=== PATIENT | male | born 1965 | race Caucasian/White ===

== ENCOUNTER 2018-01-26 14:16 | Inpatient (IN) | payer SELFPAY ==
[2018-01-26 14:26] LABS: ADD MAN DIFF? NO
[2018-01-26 14:28] LABS: WHITE BLOOD COUNT 6.4 10^3/ul (4.8-10.8)
[2018-01-26 14:28] LABS: BASOPHIL # 0.1 10^3/ul (0.0-0.1); BASOPHILS % 0.8 % (0.0-2.0); EOSINOPHILS # 0.2 10^3/ul (0.0-0.5); HEMATOCRIT 39.8 % (42.0-52.0); HEMOGLOBIN 14.2 g/dl (14.0-18.0); LYMPHOCYTES # 1.3 10^3/ul (0.8-2.9); MEAN CORPUSCULAR HEMOGLOBIN 30.9 pg (29.0-33.0); MEAN CORPUSCULAR HGB CONC 35.7 g/dl (32.0-37.0); MEAN CORPUSCULAR VOLUME 86.7 fl (82.0-101.0); MEAN PLATELET VOLUME 9.4 fl (7.4-10.4); MONOCYTE # 0.6 10^3/ul (0.3-0.9); MONOCYTES % 9.7 % (0.0-11.0); NEUTROPHIL # 4.2 10^3/ul (1.6-7.5); NEUTROPHILS % 65.3 % (39.0-77.0); PLATELET COUNT 308 10^3/UL (140-415); RED BLOOD COUNT 4.59 10^6/ul (4.70-6.10); RED CELL DISTRIBUTION WIDTH 12.8 % (11.5-14.5)
[2018-01-26 14:39] LABS: ANION GAP 16 (8-16); BLOOD UREA NITROGEN 16 mg/dl (7-20); CALCIUM 8.9 mg/dl (8.4-10.2); CARBON DIOXIDE 27 mmol/L (21-31); CHLORIDE 103 mmol/L (97-110); CREATININE 0.93 mg/dl (0.61-1.24); GLUCOSE 101 mg/dl (70-220); POTASSIUM 3.2 mmol/L (3.5-5.1); SODIUM 143 mmol/L (135-144)
[2018-01-26 14:52] LABS: TROPONIN-I < 0.012 ng/ml (0.00-0.12)
[2018-01-26] MEDS: SOD CHLORIDE 0.9% 1,000 ML IV ×2 (14:56→17:28)
[2018-01-26] MEDS: POTASSIUM CHLORIDE (SR) 20 MEQ TAB PO ×2 (15:37→17:28)
[2018-01-26] MEDS ORDERED: ONDANSETRON 4 MG INJ IV ×2 (16:00→17:00)
[2018-01-26] MEDS ORDERED: ACETAMINOPHEN 325 MG TAB PO ×2 (16:00→17:00)
[2018-01-26] MEDS ORDERED: morphine 2 MG INJ IV (17:00)
[2018-01-26] MEDS ORDERED: ZOLPIDEM 5 MG TAB PO (17:00)
[2018-01-26] MEDS ORDERED: LORAZEPAM 0.5 MG TAB PO (17:00)
[2018-01-26] MEDS ORDERED: NITROGLYCERIN (SL) 0.4 MG TAB SL (17:00)
[2018-01-26] MEDS: DOCUSATE SODIUM 100 MG CAP PO (17:28)
[2018-01-26] MEDS: ENOXAPARIN 100 MG/ML SYG SC (18:30)
[2018-01-26] MEDS: HYDROCODONE/APAP (5/325) TAB PO (18:40)
[2018-01-26 21:39] LABS: ALANINE AMINOTRANSFERASE 22 IU/L (13-69); ALBUMIN 3.8 g/dl (3.3-4.9); ALKALINE PHOSPHATASE 63 IU/L (42-121); ASPARTATE AMINO TRANSFERASE 27 IU/L (15-46); BILIRUBIN,INDIRECT 0.4 mg/dl (0-1.1); BILIRUBIN,TOTAL 0.4 mg/dl (0.2-1.3); TOTAL PROTEIN 6.5 g/dl (6.1-8.1)
[2018-01-26 21:40] LABS: CREATINE KINASE 115 IU/L (23-200)
[2018-01-26 21:41] LABS: PHOSPHORUS 3.9 mg/dl (2.5-4.9)
[2018-01-26] MEDS: FAMOTIDINE 20 MG TAB PO (21:48)
[2018-01-26 21:52] LABS: CK INDEX 1.2; CK-MB 1.42 ng/ml (0.0-2.4); TROPONIN-I < 0.012 ng/ml (0.00-0.12)
[2018-01-27 02:49] LABS: CREATINE KINASE 104 IU/L (23-200)
[2018-01-27 03:02] LABS: CK INDEX 1.2
[2018-01-27 03:04] LABS: CK-MB 1.29 ng/ml (0.0-2.4); TROPONIN-I < 0.012 ng/ml (0.00-0.12)
[2018-01-27 04:13] LABS: ADD UMIC NO; UR ASCORBIC ACID NEGATIVE (NEGATIVE); UR BILIRUBIN (Dip) NEGATIVE (NEGATIVE); UR BLOOD (Dip) NEGATIVE (NEGATIVE); UR CLARITY SLIGHTLY CLOUDY (CLEAR); UR COLOR YELLOW (YELLOW); UR GLUCOSE (Dip) NEGATIVE (NEGATIVE); UR KETONES (Dip) NEGATIVE (NEGATIVE); UR LEUKOCYTE ESTERASE (Dip) NEGATIVE Leu/ul (NEGATIVE); UR MUCUS MANY /HPF (NONE SEEN); UR NITRITE (Dip) NEGATIVE (NEGATIVE); UR RBC 3 /HPF (0-5); UR SPECIFIC GRAVITY (Dip) 1.021 (1.003-1.030); UR TOTAL PROTEIN (Dip) NEGATIVE (NEGATIVE); UR UROBILINOGEN (Dip) 1+ mg/dL (NEGATIVE); UR WBC 6 /HPF (0-5)
[2018-01-27 04:27] LABS: BARBITURATES Negative (NEGATIVE); BENZODIAZEPINES Negative (NEGATIVE); CANNABINOIDS Negative (NEGATIVE); COCAINE Negative (NEGATIVE); OPIATES Negative (NEGATIVE)
[2018-01-27 04:46] LABS: AMPHETAMINE/METHAMPHETAMINE POSITIVE (NEGATIVE)
[2018-01-27] MEDS: DOCUSATE SODIUM 100 MG CAP PO ×2 (05:00→17:54)
[2018-01-27] MEDS: SOD CHLORIDE 0.9% 1,000 ML IV (05:03)
[2018-01-27 08:00] LABS: ADD MAN DIFF? NO
[2018-01-27 08:08] LABS: WHITE BLOOD COUNT 4.4 10^3/ul (4.8-10.8)
[2018-01-27 08:08] LABS: BASOPHILS % 0.7 % (0.0-2.0); EOSINOPHILS # 0.3 10^3/ul (0.0-0.5); EOSINOPHILS % 6.4 % (0.0-7.0); HEMATOCRIT 40.4 % (42.0-52.0); LYMPHOCYTES # 0.9 10^3/ul (0.8-2.9); LYMPHOCYTES % 21.1 % (15.0-51.0); MEAN CORPUSCULAR HGB CONC 34.7 g/dl (32.0-37.0); MEAN CORPUSCULAR VOLUME 89.4 fl (82.0-101.0); MEAN PLATELET VOLUME 10.1 fl (7.4-10.4); MONOCYTE # 0.4 10^3/ul (0.3-0.9); MONOCYTES % 10.1 % (0.0-11.0); NEUTROPHIL # 2.7 10^3/ul (1.6-7.5); NEUTROPHILS % 61.2 % (39.0-77.0); PLATELET COUNT 287 10^3/UL (140-415); RED BLOOD COUNT 4.52 10^6/ul (4.70-6.10)
[2018-01-27 08:26] LABS: INR 1.01; PROTIME 13.4 Sec (11.9-14.9)
[2018-01-27 08:27] LABS: PARTIAL THROMBOPLASTIN TIME 32.6 Sec (25.0-35.0)
[2018-01-27 08:34] LABS: ANION GAP 15 (8-16); BLOOD UREA NITROGEN 16 mg/dl (7-20); CALCIUM 8.5 mg/dl (8.4-10.2); CARBON DIOXIDE 24 mmol/L (21-31); CHLORIDE 110 mmol/L (97-110); CHOLESTEROL 138 mg/dl (100-200); CREATININE 0.74 mg/dl (0.61-1.24); GLUCOSE 85 mg/dl (70-220); HDL CHOLESTEROL 45 mg/dl (28-71); LDL CHOLESTEROL,CALCULATED 78 mg/dl; MAGNESIUM 1.9 mg/dl (1.7-2.5); POTASSIUM 4.2 mmol/L (3.5-5.1); SODIUM 145 mmol/L (135-144); TRIGLYCERIDES 76 mg/dl (0-149)
[2018-01-27] MEDS: FAMOTIDINE 20 MG TAB PO (09:49)
[2018-01-27] MEDS: ASPIRIN 81 MG TAB PO (09:49)
[2018-01-27] MEDS: ENOXAPARIN 100 MG/ML SYG SC (09:52)
[2018-01-27 10:33] LABS: HEMOGLOBIN A1C 5.3 % (0-5.9)
== END 2018-01-27 19:30 | disposition home or self-care (01) | DRG 312 ==
LOC: E/R 14:16 → MS4 15:42
DX: R55 Syncope and collapse (principal); I10 Essential (primary) hypertension; F15.10 Other stimulant abuse, uncomplicated; E87.6 Hypokalemia; F17.200 Nicotine dependence, unspecified, uncomplicated; I49.9 Cardiac arrhythmia, unspecified
CPT/HCPCS: 36415; 70450; 71045; 80048; 80061; 80076; 80307; 81001; 81003; 82550; 82553; 83036; 83735; 84100; 84443; 84484; 85025; 85610; 85730; 93005; 93306; 93880; 96372; 99291-25